=== PATIENT | female | born 1960 | race Caucasian/White ===

== ENCOUNTER 2018-07-16 16:40 | Emergency (ER) | payer OTHER ==
[2018-07-16] MEDS ORDERED: ONDANSETRON HCL 4 MG/2 ML SOL IV ONE (16:49)
[2018-07-16] MEDS ORDERED: LIDOCAINE HCL 2% (VISCOUS) 20 ML SOL MT ONE (17:01)
[2018-07-16] MEDS ORDERED: ALUMINUM/MAGNESIUM 30 ML SUS PO ONE (17:01)
[2018-07-16 17:03] LABS: BASOPHILS % (AUTO) 1 % (0-3); EOSINOPHILS % (AUTO) 0 % (0-9); HEMATOCRIT 38 % (35-47); HEMOGLOBIN 12.4 gm/dl (12.0-15.5); LYMPHOCYTES % (AUTO) 29.2 % (10-50); MEAN CORPUSCULAR HEMOGLOBIN 31.5 pg (27.0-32.0); MEAN CORPUSCULAR HGB CONC 32.3 gm/dl (32.0-36.0); MEAN CORPUSCULAR VOLUME 98 fL (81-99); MONOCYTES % (AUTO) 7.9 % (0-12); NEUTROPHILS % (AUTO) 62.1 % (37-80)
[2018-07-16] MEDS ORDERED: ALUMINUM/MAGNESIUM 30 ML SUS ONE (17:25)
[2018-07-16] MEDS ORDERED: ONDANSETRON HCL 4 MG/2 ML SOL ONE (17:25)
[2018-07-16] MEDS ORDERED: LIDOCAINE HCL 2% (VISCOUS) 20 ML SOL ONE (17:25)
[2018-07-16 17:29] LABS: ALBUMIN 2.7 gm/dl (3.4-5.0); BILIRUBIN,TOTAL 0.4 mg/dl (0.2-1.0); CALCIUM 8.8 mg/dl (8.5-10.1); CARBON DIOXIDE 24.9 mEq/L (21-32); CREATININE 0.62 mg/dl (0.60-1.00); POTASSIUM 3.1 mMol/L (3.5-5.1); TOTAL PROTEIN 6.8 gm/dl (6.4-8.2)
[2018-07-16 17:32] LABS: ALCOHOL 0.362 gm/dl (0.000-0.08)
[2018-07-16] MEDS ORDERED: SODIUM CHLORIDE 0.9% 1000ML 1,000 ML IV SCH (18:15)
[2018-07-16 19:32] LABS: AMPHETAMINES NEGATIVE (NEGATIVE); BARBITUATES NEGATIVE (NEGATIVE); BENZODIAZEPINES NEGATIVE (NEGATIVE); CANNABINOL(THC) NEGATIVE (NEGATIVE); COCAINE(COC) NEGATIVE (NEGATIVE); METHADONE NEGATIVE (NEGATIVE); METHAMPHETAMINES NEGATIVE (NEGATIVE); OPIATES(OPI) NEGATIVE (NEGATIVE); OXYCODONE(OXY) NEGATIVE (NEGATIVE); PROPOXYPHENE(PPX) NEGATIVE (NEGATIVE); TRICYCLIC ANTIDEPRESSANTS NEGATIVE (NEGATIVE)
[2018-07-16 23:24] VITALS: BP 104/67; PULSE 98; RESP 16; TEMP 97.6; O2SAT 97
== END 2018-07-17 00:50 | disposition short-term general hospital (02) | DRG 897 ==
LOC: ED 16:40
DX: F10.929 Alcohol use, unspecified with intoxication, unspecified (principal)
CPT/HCPCS: 71045; 80053; 80305; 80307; 85025; 96365; 96366; 96374; 99283; 99285; J2405; A9270-GY

== ENCOUNTER 2018-07-21 16:54 | Emergency (ER) | payer OTHER ==
[2018-07-21 17:24] VITALS: TEMP 98.1
[2018-07-21] MEDS ORDERED: SODIUM CHLORIDE 0.9% FLUSH 10 ML SOL IV PRN (17:30)
[2018-07-21] MEDS ORDERED: SODIUM CHLORIDE 0.9% 1000ML 1,000 ML IV ONE ×2 (17:30→19:00)
[2018-07-21 17:42] LABS: BASOPHILS % (AUTO) 1 % (0-3); EOSINOPHILS % (AUTO) 1 % (0-9); HEMATOCRIT 37 % (35-47); LYMPHOCYTES % (AUTO) 36.9 % (10-50); MEAN CORPUSCULAR HEMOGLOBIN 31.4 pg (27.0-32.0); MEAN CORPUSCULAR HGB CONC 32.1 gm/dl (32.0-36.0); MEAN CORPUSCULAR VOLUME 98 fL (81-99); MONOCYTES % (AUTO) 6.5 % (0-12); NEUTROPHILS % (AUTO) 54.8 % (37-80)
[2018-07-21 18:07] LABS: ALBUMIN 2.8 gm/dl (3.4-5.0); BILIRUBIN,TOTAL 0.2 mg/dl (0.2-1.0); CALCIUM 8.9 mg/dl (8.5-10.1); CREATININE 0.68 mg/dl (0.60-1.00); POTASSIUM 3.9 mMol/L (3.5-5.1); TOTAL PROTEIN 6.8 gm/dl (6.4-8.2)
[2018-07-21 18:13] LABS: ALCOHOL 0.214 gm/dl (0.000-0.08)
[2018-07-21 20:18] LABS: TRICYCLIC ANTIDEPRESSANTS NEGATIVE (NEGATIVE)
[2018-07-21 20:19] LABS: AMPHETAMINES NEGATIVE (NEGATIVE); BARBITUATES NEGATIVE (NEGATIVE); BENZODIAZEPINES POSITIVE (NEGATIVE); CANNABINOL(THC) NEGATIVE (NEGATIVE); COCAINE(COC) NEGATIVE (NEGATIVE); METHADONE NEGATIVE (NEGATIVE); METHAMPHETAMINES NEGATIVE (NEGATIVE); OPIATES(OPI) NEGATIVE (NEGATIVE); OXYCODONE(OXY) NEGATIVE (NEGATIVE); PROPOXYPHENE(PPX) NEGATIVE (NEGATIVE)
[2018-07-22] MEDS ORDERED: LEVETIRACETAM 250 MG TAB PO ONE (01:30)
[2018-07-22 01:42] VITALS: BP 124/92; PULSE 93; RESP 14; O2SAT 92
[2018-07-22] MEDS ORDERED: LEVETIRACETAM 250 MG TAB ONE (01:48)
== END 2018-07-22 01:57 | DRG 897 ==
LOC: ED 16:54
DX: F10.929 Alcohol use, unspecified with intoxication, unspecified (principal); W19.XXXA Unspecified fall, initial encounter; Y90.7 Blood alcohol level of 200-239 mg/100 ml
CPT/HCPCS: 70450; 80053; 80305; 80307; 85025; 96365; 96366; 99283; 99285; A9270-GY

== ENCOUNTER 2018-08-03 20:53 | Emergency (ER) | payer OTHER ==
[2018-08-03 21:07] VITALS: TEMP 96.9
[2018-08-03] MEDS: SODIUM CHLORIDE 0.9% FLUSH 10 ML SOL IV PRN (22:08)
[2018-08-03] MEDS ORDERED: LORAZEPAM 2 MG/ML SOL IV ONE (22:40)
[2018-08-03] MEDS ORDERED: LORAZEPAM 2 MG/ML SOL ONE (22:43)
[2018-08-03 22:52] LABS: BASOPHILS % (AUTO) 1 % (0-3); EOSINOPHILS % (AUTO) 0 % (0-9); HEMATOCRIT 42 % (35-47); HEMOGLOBIN 13.6 gm/dl (12.0-15.5); LYMPHOCYTES % (AUTO) 19.8 % (10-50); MEAN CORPUSCULAR HGB CONC 32.7 gm/dl (32.0-36.0); MEAN CORPUSCULAR VOLUME 95 fL (81-99); MONOCYTES % (AUTO) 6.1 % (0-12); NEUTROPHILS % (AUTO) 73.4 % (37-80)
[2018-08-03 22:59] LABS: INR 0.92 (0.86-1.12)
[2018-08-03] MEDS ORDERED: SODIUM CHLORIDE 0.9% 1000ML 1,000 ML IV ONE (23:00)
[2018-08-03 23:07] LABS: ALBUMIN 3.8 gm/dl (3.4-5.0); ALKALINE PHOSPHATASE 175 IU/L (46-116); ALT 31 IU/L (14-63); AMMONIA 18 umol/L (11-32); AST 22 IU/L (15-37); BLOOD UREA NITROGEN 15 mg/dl (7-18); CALCIUM 9.5 mg/dl (8.5-10.1); CHLORIDE 79 mMol/L (98-107); GLUCOSE 121 mg/dl (74-106); POTASSIUM 3.1 mMol/L (3.5-5.1); TOTAL PROTEIN 8.9 gm/dl (6.4-8.2)
[2018-08-03 23:15] LABS: ALCOHOL < 0.003 gm/dl (0.000-0.08)
[2018-08-03 23:26] LABS: SODIUM 121 mMol/L (136-145)
[2018-08-03] MEDS ORDERED: POTASSIUM CHLORIDE 2 MEQ/ML SOL IV SCH (23:45)
[2018-08-03] MEDS ORDERED: POTASSIUM CHLORIDE 2 MEQ/ML SOL IV ONE (23:47)
[2018-08-04] MEDS ORDERED: PROMETHAZINE HYDROCHLORIDE 25 MG/ML SOL IV ONE
[2018-08-04] MEDS ORDERED: PROMETHAZINE HYDROCHLORIDE 25 MG/ML SOL ONE (00:01)
[2018-08-04 00:04] LABS: APPEARANCE,URINE Clear; BILIRUBIN,URINE NEGATIVE (NEGATIVE); COLOR,URINE Yellow; GLUCOSE, URINE (UA) NEGATIVE (NEGATIVE); KETONES,URINE NEGATIVE (NEGATIVE); LEUKOCYTE ESTERASE ,URINE NEGATIVE (NEGATIVE); NITRATE,URINE NEGATIVE (NEGATIVE); OCCULT BLOOD,URINE NEGATIVE (NEG-TRACE); PH,URINE 7.5
[2018-08-04 00:13] LABS: BACTERIA NEGATIVE (< 1+); CRYSTALS NEGATIVE (0-3 AVE/HPF); EPITHELIAL CELLS 0-2 (SQUAMOUS); RBC,URINE NEG (0-3AV/HPF); WBC,URINE 0-1 (0-5AV/HPF)
[2018-08-04 00:14] LABS: AMPHETAMINES NEGATIVE (NEGATIVE); BARBITUATES NEGATIVE (NEGATIVE); BENZODIAZEPINES POSITIVE (NEGATIVE); CANNABINOL(THC) NEGATIVE (NEGATIVE); COCAINE(COC) NEGATIVE (NEGATIVE); METHADONE NEGATIVE (NEGATIVE); METHAMPHETAMINES NEGATIVE (NEGATIVE); OPIATES(OPI) NEGATIVE (NEGATIVE); OXYCODONE(OXY) NEGATIVE (NEGATIVE); PROPOXYPHENE(PPX) NEGATIVE (NEGATIVE); TRICYCLIC ANTIDEPRESSANTS NEGATIVE (NEGATIVE)
[2018-08-04] MEDS: SODIUM CHLORIDE 0.9% FLUSH 10 ML SOL IV PRN (00:16)
[2018-08-04 01:12] VITALS: RESP 16
[2018-08-04 02:04] VITALS: BP 161/105; PULSE 76; O2SAT 98
== END 2018-08-04 00:26 | disposition short-term general hospital (02) | DRG 66 ==
LOC: ED 20:53
DX: I61.8 Other nontraumatic intracerebral hemorrhage (principal)
CPT/HCPCS: 36415; 70450; 80053; 80305; 80307; 81001; 82140; 85025; 85610; 96365; 96374; 99284; 99285; J2060; J2550; J3480